=== PATIENT | male | born 1950 | race Caucasian/White ===

== ENCOUNTER → 2022-02-04 | Outpatient (CLI) | payer MEDICARE | END | disposition home or self-care (01) | LOC: US 00:23 | PROVIDERS: ATTEND Internal Medicine | DX: Z13.6 Encounter for screening for cardiovascular disorders (principal) ==

== ENCOUNTER → 2022-11-19 | Outpatient (CLI) | payer MEDICARE | END | disposition home or self-care (01) | LOC: CARD 00:23 | PROVIDERS: ATTEND Internal Medicine | DX: I35.0 Nonrheumatic aortic (valve) stenosis (principal); R01.1 Cardiac murmur, unspecified ==

== ENCOUNTER → 2023-08-19 | Outpatient (CLI) | payer MEDICARE ==
[2023-08-19 11:50] LABS: BASO # 0.1 10*3/uL (0.0-0.1); BASO % 0.6 % (0.0-1.0); EOS # 0.2 10*3/uL (0.0-0.4); EOS % 1.9 % (1.0-4.0); HEMATOCRIT 47.6 % (42.0-52.0); LYMPH # 1.9 10*3/uL (1.3-4.4); LYMPH % 21.4 % (27.0-41.0); MEAN CELL VOLUME 93.2 fl (80.0-94.0); MEAN CORPUSCULAR HGB 30.7 pg (27.0-31.0); MEAN PLATELET VOLUME 8.9 fl (9.6-12.3); MONO # 0.5 10*3/uL (0.1-1.0); NEUT # 6.2 10*3/uL (2.3-7.9); NEUT % 69.4 % (47.0-73.0); PLATELET COUNT AUTOMATED 208 10*3/uL (130-400); RED BLOOD COUNT 5.11 10*6/uL (4.50-5.90); RED CELL DISTRI WIDTH 12.9 % (0-14.5); WHITE BLOOD COUNT 8.9 10*3/uL (4.8-10.8)
[2023-08-19 12:50] LABS: ALKALINE PHOSPHATASE 100 U/L (46-116); BUN 21 mg/dl (9-23); CHLORIDE 111 mmol/L (98-107); CHOLESTEROL 189 mg/dL (<200); LDL CHOLESTEROL 113 mg/dL (9-159); POTASSIUM 4.2 mmol/L (3.4-5.1); SGPT/ALT 21 U/L (5-49); TOTAL PROTEIN 7.6 gm/dL (6.0-8.0); TRIGLYCERIDES 100 mg/dl (<150)
== END | disposition home or self-care (01) ==
LOC: LAB 11:24
PROVIDERS: ATTEND Internal Medicine
DX: Z12.5 Encounter for screening for malignant neoplasm of prostate (principal); E78.5 Hyperlipidemia, unspecified; I10 Essential (primary) hypertension; E55.9 Vitamin D deficiency, unspecified; E53.8 Deficiency of other specified B group vitamins

== ENCOUNTER 2024-11-25 03:51 | Emergency (ER) | payer MEDICARE ==
[~2024-11-25] VITALS: Ht 172.7 cm; Wt 93.0 kg
[2024-11-25 04:21] LABS: BASO # 0.1 10*3/uL (0.0-0.1); BASO % 0.4 % (0.0-1.0); EOS # 0.1 10*3/uL (0.0-0.4); EOS % 0.5 % (1.0-4.0); MEAN CELL VOLUME 90.8 fl (80.0-94.0); MEAN CORPUSCULAR HGB 30.2 pg (27.0-31.0); MEAN PLATELET VOLUME 9.0 fl (9.6-12.3); MONO # 0.8 10*3/uL (0.1-1.0); MONO % 5.9 % (3.0-9.0); NEUT # 10.7 10*3/uL (2.3-7.9); NEUT % 76.5 % (47.0-73.0); NUCLEATED RED BLOOD CELL 0.0 % (0.0-0.0); NUCLEATED RED BLOOD CELL 0.0 10*3/uL (0.0-0.0); PLATELET COUNT AUTOMATED 268 10*3/uL (130-400); RED CELL DISTRI WIDTH 12.3 % (0-14.5)
[2024-11-25] MEDS ORDERED: Ondansetron Hydrochloride 4 MG/2 ML VIAL IV ONE (04:35)
[2024-11-25 04:39] LABS: BUN 28.0 mg/dl (9-23)
[2024-11-25 04:58] LABS: BILIRUBIN Negative (Negative); BLOOD 3+ (Negative); CLARITY Clear (Clear); COLOR Yellow (Yellow); KETONE Trace (Negative); LEUKO ESTERASE Negative (Negative); NITRITE Negative (Negative); PH 5.0 (4.5-8.0); SPECIFIC GRAVITY >= 1.030 (1.001-1.030); UROBILINOGEN 1.0 E.U./dl (0.0-1.0)
[2024-11-25 05:27] LABS: BACTERIA TRACE; RBC 31-40 rbc/hpf (0-2); WBC 0-2 wbc/hpf (0-5)
[2024-11-25] MEDS ORDERED: FLOMAX0.4 MG PO (05:40)
[2024-11-25] MEDS ORDERED: Ondansetron4 MG PO (05:40)
[2024-11-25] MEDS ORDERED: HYDROCODONE-AC1 EAC1 PO (05:40)
== END 2024-11-25 05:44 | disposition home or self-care (01) ==
LOC: ED 03:51
PROVIDERS: Internal Medicine
DX: N13.2 Hydronephrosis with renal and ureteral calculous obstruction (principal); N17.9 Acute kidney failure, unspecified; D72.829 Elevated white blood cell count, unspecified

== ENCOUNTER 2024-11-27 12:08 | Emergency (ER) | payer MEDICARE ==
[~2024-11-27] VITALS: Ht 172.7 cm; Wt 93.0 kg
[~2024-11-27 12:08] MED LIST: FLOMAX0.4 MG PO; HYDROCODONE-AC1 EAC1 PO; Ondansetron4 MG PO
[2024-11-27] MEDS ORDERED: SODIUM CHLORIDE 0.9% 500 ML IV ONE (12:35)
[2024-11-27 12:43] LABS: BASO # 0.0 10*3/uL (0.0-0.1); BASO % 0.2 % (0.0-1.0); EOS # 0.0 10*3/uL (0.0-0.4); EOS % 0.2 % (1.0-4.0); MEAN CELL VOLUME 90.5 fl (80.0-94.0); MEAN CORPUSCULAR HGB 30.0 pg (27.0-31.0); MEAN PLATELET VOLUME 8.9 fl (9.6-12.3); MONO # 0.9 10*3/uL (0.1-1.0); MONO % 6.8 % (3.0-9.0); NEUT # 11.0 10*3/uL (2.3-7.9); NEUT % 82.7 % (47.0-73.0); NUCLEATED RED BLOOD CELL 0.0 % (0.0-0.0); NUCLEATED RED BLOOD CELL 0.0 10*3/uL (0.0-0.0); PLATELET COUNT AUTOMATED 233 10*3/uL (130-400); RED CELL DISTRI WIDTH 12.0 % (0-14.5)
[2024-11-27] MEDS ORDERED: IOHEXOL 300 MG/ML 100 ML VIAL IV ONE (12:45)
[2024-11-27 13:43] LABS: BUN 34.0 mg/dl (9-23)
[2024-11-27] MEDS ORDERED: Iodixanol 320 100 ML VIAL IV ONE (13:50)
[2024-11-27] MEDS ORDERED: Iodixanol 320 100 ML VIAL ONE (14:11)
== END 2024-11-27 17:33 | disposition short-term general hospital (02) ==
LOC: ED 12:08
PROVIDERS: Student in an Organized Health Care Education/Training Program
DX: N20.0 Calculus of kidney (principal); N17.9 Acute kidney failure, unspecified; K56.41 Fecal impaction